=== PATIENT | male | born 1955 | race Caucasian/White ===

== ENCOUNTER 2018-04-08 17:38 | Inpatient (IN) | payer OTHER ==
[~2018-04-08] VITALS: Ht 182.9 cm; Wt 95.3 kg
--- NOTE | ~2018-04-08 | EKG ---
[address] [address] ELECTROCARDIOGRAM REPORT Name: SCOTT CARDENAS Room #: 361-P ADM IN M.R.#: [id number] Admission: 04/08/18 Attend Phys: Isma Kaye MD Discharge: Date of : 51 Report #: [id number] THIS REPORT FOR: //name// [facility] ED Test Date: 2018-04-08 Test Time: 18:02:04 Pat Name: SCOTT CARDENAS Department: Room: Gender: M Engineering Tech: DANG : 1955 Requested By: Rusty Flores Order Number: [id number] MD: Hernan Lerma Measurements Intervals [place] Rate: 101 P: 42 TN: 163 QRS: 0 QRSD: 119 T: 2 QT: 331 QTc: 429 Interpretive Statements Sinus tachycardia Nonspecific intraventricular conduction delay Inferior infarct, old No previous ECG available for comparison Electronically Signed On 04-09-2018 12:11:48 CDT by Hernan Lerma [email or web address] <ELECTRONICALLY SIGNED> By: Hernan Lerma MD 04/09/18 1211 180 180 MD ANNE-MARIE Franco
--- NOTE | ~2018-04-08 | HC ---
[facility] [place] [address] CONSULTATION Name: SCOTT CARDENAS Room #: 361-P [facility] IN M.R.#: [id number] Admission: 04/08/18 Attend Phys: Isma Kaye MD Discharge: 04/09/18 Date of : 51 Report #: [id number] THIS REPORT FOR: //name// CC: Solitario Bowerseen Moshe DATE OF SERVICE: 04/08/2018 HISTORY OF PRESENT ILLNESS: This is a 62-year-old male patient who was evaluated by me for seizure. This patient does not remember anything what happened. So, I talked to the ER nurse practitioner, who saw this patient and talked to the patient's . It does look like he had a generalized tonic-clonic seizure with well-defined postictal periods. thinks it may have lasted about 3 minutes and his confusion was severe, but it is becoming better. REVIEW OF SYSTEMS: I carried out 14-point review of system in this patient and it looks like he drank significant amount of alcohol last night. This is because his son has come. He drinks alcohol. He did not give me any specific number, but looks like when he drinks, he drinks a few beers and some wine, but last night he drank much more than that. He never had any seizure because of alcohol. He did not have any cardiac or any respiratory problems. He is not a known diabetic. His 14-point review of system was carried out, but was otherwise basically unremarkable. PAST MEDICAL HISTORY: Negative for any seizure. FAMILY HISTORY: Negative for any early onset seizure. SOCIAL HISTORY: He does drink alcohol as described above. PHYSICAL EXAMINATION: Indicate he is alert, responsive, able to follow simple and complex command. His speech, concentration, fund of knowledge and memory is at his baseline. Cranial nerve examination 2-12 looks unremarkable. His neuromuscular examination looks symmetrical. He has no meningeal sign. There is no carotid bruit in this patient. Cardiac examination is unremarkable. No respiratory difficulty or rhonchi was noticed. There is no edema. Blood pressure is 123/57, respirations 13, pulse is 73, and temperature is 99. He did have a CT scan of the head which was unremarkable. IMPRESSION: This patient appeared to have a seizure. It may be alcohol-related seizure. We need workup to exclude any other cause. RECOMMENDATION: I discussed with the patient's nurse practitioner. I told them to start him on some banana bags. They should take seizure precaution. I told [facility] [address] [place] [address] CONSULTATION Name: SCOTT CARDENAS Room #: 361-P [facility] IN M.R.#: [id number] Admission: 04/08/18 Attend Phys: Isma Kaye MD Discharge: 04/09/18 Date of : 51 Report #: [id number] the patient that he cannot drive for 6 months because of [place] law. I did talk to him about the seizure precaution and I will suggest doing an MRI of the brain and EEG. I discussed that and discussed the indication, potential complication, and alternatives and he wanted to proceed with that. Thank you very much for this referral. <ELECTRONICALLY SIGNED> By: José Miguel Mesa MD 04/10/182019 36 05 José Miguel Mesa MD /nt
--- NOTE | ~2018-04-08 | EEG ---
[facility] [place] [address] ELECTROENCEPHALOGRAM Name: SCOTT CARDENAS Room #: 361-P [facility] IN M.R.#: [id number] Admission: 04/08/18 Attend Phys: Isma Kaye MD Discharge: 04/09/18 Date of : 51 Report #: [id number] THIS REPORT FOR: //name// CC: Solitario Mesa DATE OF SERVICE: 04/09/2018 This patient is being evaluated for the possibility of seizure. EEG was done by placing the electrodes by standard 10-20 system of electrode placement. Both referential and sequential montages were used for recording. Background activity in this patient's EEG is about 11 Hz and 40 microvolts. This is a symmetrical activity. The patient became drowsy that is associated with bilateral slowing and vertex sharp waves. Throughout the record, no clear-cut epileptiform activity was noticed. However, photic stimulation did induce bilateral slowing. It is an unusual finding, I do not know what the significance of this is. IMPRESSION: The whole EEG is unremarkable except photic stimulation. Photic stimulation does not induce any clear-cut seizure activity, but does induce slowing, which is unusual. Thank you very much for this referral. <ELECTRONICALLY SIGNED> By: José Miguel Mesa MD 04/10/182 1201 1437 José Miguel Mesa MD /nt
[2018-04-08 17:41] VITALS: BP 134/71
[2018-04-08 18:26] LABS: ABSOLUTE NEUTROPHILS 5.9 thou/uL (1.4-8.2); BASOPHILS 0.6 % (0.0-2.0); EOSINOPHILS 1.4 % (0.0-3.0); HEMATOCRIT 41.8 % (42.0-52.0); HEMOGLOBIN 14.6 gm/dL (14.0-18.0); LYMPHOCYTES 19.3 % (24.0-44.0); MCH 32.8 pg (26.0-34.0); MCV 93.9 fL (80.0-100.0); MONOCYTES 7.5 % (1.0-8.0); PLATELET COUNT 225 thou/uL (150-400); POLYS 71.2 % (36.0-66.0); RBC 4.45 mil/uL (4.50-6.00); RDW 13.5 % (10.5-14.5); WBC 8.3 thou/uL (4.0-11.0)
[2018-04-08 18:34] LABS: ANION GAP 14 mmol/L (7-16); BUN 23 mg/dL (7-18); CALCIUM 9.1 mg/dL (8.5-10.1); CHLORIDE 103 mmol/L (98-107); CO2 23 mmol/L (21-32); CREATININE 1.5 mg/dL (0.7-1.3); GLUCOSE 97 mg/dL (74-106); POTASSIUM 3.6 mmol/L (3.5-5.1); SODIUM 140 mmol/L (136-145)
[2018-04-08 18:42] LABS: TROPONIN-I < 0.04 ng/mL (<0.06)
[2018-04-08] MEDS ORDERED: FLOMAX0.4 MG PO (20:31)
[2018-04-08] MEDS ORDERED: ATORVASTATIN CA40 MG PO (20:31)
[2018-04-08] MEDS ORDERED: NEURONTIN 300300 M1 PO (20:32)
[2018-04-08 20:34] VITALS: BP 123/57
[2018-04-08 20:47] VITALS: BP 123/57
[2018-04-08 21:00] VITALS: BP 138/65
[2018-04-08 22:49] LABS: MAGNESIUM 2.2 mg/dL (1.8-2.4); PHOSPHORUS 2.8 mg/dL (2.5-4.9)
[2018-04-08 22:51] LABS: ALBUMIN 3.3 g/dL (3.4-5.0); CALCIUM 8.3 mg/dL (8.5-10.1); CREATININE 1.3 mg/dL (0.7-1.3); POTASSIUM 3.1 mmol/L (3.5-5.1); TOTAL BILIRUBIN 0.6 mg/dL (<0.1-1.0); TOTAL PROTEIN 6.3 g/dL (6.4-8.2)
[2018-04-08 23:35] VITALS: BP 112/66
[2018-04-09 01:12] LABS: FOLIC ACID 35.3 ng/mL (8.6-58.9)
[2018-04-09 04:20] VITALS: BP 125/58
[2018-04-09 06:11] LABS: HEMOGLOBIN 13.1 gm/dL (14.0-18.0); MCH 32.9 pg (26.0-34.0); MCHC 35.5 g/dL (28.0-37.0); MCV 92.8 fL (80.0-100.0); RBC 3.98 mil/uL (4.50-6.00); WBC 9.5 thou/uL (4.0-11.0)
[2018-04-09 06:22] LABS: CREATININE 1.2 mg/dL (0.7-1.3); POTASSIUM 3.3 mmol/L (3.5-5.1)
[2018-04-09 07:34] VITALS: BP 93/54
[2018-04-09 11:24] VITALS: BP 124/66
[2018-04-09 15:24] VITALS: BP 132/77
[2018-04-09 16:22] VITALS: BP 132/77
[2018-04-09 20:18] VITALS: BP 132/77
== END 2018-04-09 16:00 | disposition home or self-care (01) | DRG 100 ==
LOC: ER 17:38 → EROBS 20:02 → 3W 20:49
PROVIDERS: Nurse Practitioner; Nurse Practitioner Family
DX: R56.9 Unspecified convulsions (principal); N17.0 Acute kidney failure with tubular necrosis; E78.00 Pure hypercholesterolemia, unspecified; F10.10 Alcohol abuse, uncomplicated; Y90.9 Presence of alcohol in blood, level not specified; E78.5 Hyperlipidemia, unspecified; N40.0 Benign prostatic hyperplasia without lower urinary tract symptoms; L56.8 Other specified acute skin changes due to ultraviolet radiation; Z79.899 Other long term (current) drug therapy; Z87.891 Personal history of nicotine dependence
CPT/HCPCS: 10879